=== PATIENT | male | born 1955 | race Caucasian/White ===

== ENCOUNTER → 2019-07-13 | Emergency (ER) | payer OTHER, BC ==
[~2019-07-13] VITALS: Ht 180.3 cm; Wt 63.5 kg
[~2019-07-13] MED LIST: HYDR-3061 PO; IBUPROFEN 600 MG (MOTRIN) TAB PO ONE; TETANUS,DIPTH,PERTUSS P/F (BOOSTRIX) 0.5 ML VIAL IM ONE; [UNRECOGNIZED DRUG - OTHER]
--- NOTE | 2019-07-13 19:59 | ED Upper Extremity ---
General Chief Complaint: Trauma-Non Activation Stated Complaint: RT HAND BURN Nursing Triage Note: Patient dropped a box into a vat of melting glue and reached to retrieve it. All fingers except the thumb on the right hand are burned on the anterior surface. There is blistering noted. The posterior side of the left middle finger also has blistering. Patient is rating his pain at an 8. Nursing Sepsis Screen: No Definite Risk Source: patient Exam Limitations: no limitations History of Present Illness Date Seen by Provider: Jul 13, 2019 Time Seen by Provider: 19:30 Initial Comments She has a 64 [id number] right-handed male who presents with non- circumferential second-degree rojas to the volar surface his second third fourth and fifth digits after being splashed by hot glue at work just prior to ED arrival.. On exam, the patient has early blistering. Sensation is intact. Patient states he was working with a bat of hot glue when a cardboard box fell and splashing his hand. Patient also attempted to retrieve the box from the glue vat. Patient denies facial exposure. Last known tetanus was several years ago. No other acute symptoms or complaints. Onset: just prior to arrival Pain/Injury Location: right 2nd finger, right 3rd finger, right 4th finger, right 5th finger Method of Injury: burn Allergies and Home Medications Allergies Coded Allergies: No Known Drug Allergies (Unverified , 07/13/19) Patient Home Medication List Home Medication List Reviewed: Yes Review of Systems Constitutional: no symptoms reported EENTM: no symptoms reported Respiratory: no symptoms reported Cardiovascular: no symptoms reported Gastrointestinal: no symptoms reported Genitourinary: no symptoms reported Musculoskeletal: no symptoms reported Skin: see HPI Past Kuebiaj-Zhqyql-Cahgbl Hx Past Med/Social Hx: Reviewed Nursing Past Med/Soc Hx Patient Social History Alcohol Use: Denies Use Recreational Drug Use: No Smoking Status: Never a Smoker Recent Foreign Travel: No Contact w/Someone Who Travel: No Recent Infectious Disease Expo: No Physical Abuse: No Sexual Abuse: No Mistreated: No Fear: No Seasonal Allergies Seasonal Allergies: No Past Medical History Surgeries: No Respiratory: No Cardiac: No Neurological: No Genitourinary: No Gastrointestinal: No Musculoskeletal: No Endocrine: Yes Diabetes, Insulin dep HEENT: No Cancer: No Psychosocial: No Integumentary: No Physical Exam Vital Signs Vital Signs - First Documented 10/1/19 19:25 Temp 36.4 Pulse 93 Resp 18 B/P (MAP) 154/83 (106) Pulse Ox 97 O2 Delivery Room Air Capillary Refill : Less Than 3 Seconds Height, Weight, BMI Height: '" Weight: lbs. oz. kg; 19.00 BMI Method: General Appearance: mild distress HEENT: normal ENT inspection Neck: full range of motion, supple Cardiovascular: regular rate, rhythm Respiratory: chest non-tender, lungs clear Skin: other ( non-circumferential second-degree rojas to the volar surface his second third fourth and fifth digits after being splashed by hot glue at work just prior to ED arrival.. On exam, the patient has early blistering. Sensation is intact) Progress/Results/Core Measures Results/Orders My Orders Orders - TAMANNA LOPEZ DO Dipht,Pertuss(Acell),Tet Adult ([facility] (07/13/19 19:45) Medications Given in ED Current Medications Medications Dose Ordered Sig/Randa Route Start Time Stop Time Status Last Admin Dose Admin Diphtheria/ Tetanus/Acell Pertussis 0.5 ml ONCE ONCE IM 07/13/19 19:45 07/13/19 19:46 DC 07/13/19 19:49 0.5 ML Vital Signs/I&O 07/13/19 19:25 Temp 36.4 Pulse 93 Resp 18 B/P (MAP) 154/83 (106) Pulse Ox 97 O2 Delivery Room Air Blood Pressure Mean: 106 Departure Communication (Admissions) Patient is able to peel off glue prior to evaluation in the emergency department. Second degree treated with ointment and bandage. Recommendations are for pain control, wound care and work on follow-up. Impression Primary Impression: Second degree burn of right hand Disposition: 20 Condition: Stable Departure-Patient Inst. Decision time for Depature: 20:01 Referrals: BERNADINE SIDHU MD (PCP) Primary Care Physician NO,LOCAL PHYSICIAN (Family) Primary Care Physician Patient Instructions: Skin Rojas (DC) Add. Discharge Instructions: Please keep wounds clean and dry covered and apply antibiotic ointment 3 times daily. Take ibuprofen for pain and hydrocodone as needed for additional relief. Follow-up her work comp physician tomorrow for reevaluation. All discharge instructions reviewed with patient and/or family. Voiced understanding. Scripts Hydrocodone/Acetaminophen (Hydrocodon-Acetaminophn 10-300) 1 Each Tablet 1 EACH PO q8 for 3 Days, #10 TAB Prov: TAMANNA LOPEZ DO 07/13/19 TAMANNA LOPEZ DO Jul 13, 2019 19:59
[2019-07-13 20:11] VITALS: BP 154/83
== END | disposition home or self-care (01) ==
LOC: EDUNIT# 19:19 → ER FS 19:20
DX: T23.231A Burn of second degree of multiple right fingers (nail), not including thumb, initial encounter (principal); T31.0 Burns involving less than 10% of body surface; E11.9 Type 2 diabetes mellitus without complications; X12.XXXA Contact with other hot fluids, initial encounter; Y92.59 Other trade areas as the place of occurrence of the external cause
CPT/HCPCS: 90715; 99284